=== PATIENT | female | born 1990 | race American Indian/Alaskan Native ===

== ENCOUNTER 2018-09-12 09:49 | Inpatient (IN) | payer OTHER, MEDICAID ==
[2018-09-12] MEDS ORDERED: REGLAN IV SCH (09:54)
[2018-09-12] MEDS ORDERED: PEPCID IV SCH (09:54)
[2018-09-12 11:00] LABS: Basophils % (Auto) 0.7 % (0.0-1.8); Eosinophils # (Auto) 0.1 K/mm3 (0.0-0.4); Eosinophils % (Auto) 1.1 % (0.0-4.3); Hemoglobin 11.8 gm/dl (10.1-14.3); Lymphocytes % (Auto) 27.5 % (13.4-35.0); Mean Corpuscular HGB Conc 35 % (30-34); Mean Corpuscular Volume 93 fl (79-97); Monocytes # (Auto) 0.6 K/mm3 (0.0-0.8); Monocytes % (Auto) 8.4 % (0.0-7.3); Platelet Count 387 K/mm3 (140-440); Red Blood Count 3.65 M/mm3 (3.65-5.03); Red Cell Distribution Width 13.8 % (13.2-15.2)
[2018-09-12] MEDS ORDERED: BICITRA PO ONE (11:00)
[2018-09-12] MEDS: LACTATED RINGERS 1,000 ML IV SCH ×2 (11:04→11:18)
--- NOTE | 2018-09-12 11:29 | Anesthesia Consultation ---
Anesthesia Consult and Med Hx Date of service: 09/12/18 - Airway Anesthetic Teeth Evaluation: Poor, Chipped, Crowns ROM Head & Neck: Adequate Mental/Hyoid Distance: Adequate Mallampati Class: Class II Intubation Access Assessment: Probably Good - Pulmonary Exam CTA: Yes - Cardiac Exam Cardiac Exam: RRR - Pre-Operative Health Status ASA Pre-Surgery Classification: ASA2 Proposed Anesthetic Plan: Epidural - Pulmonary Hx Smoking: No Hx Asthma: No Hx Respiratory Symptoms: No SOB: No COPD: No Home Oxygen Therapy: No Hx Pneumonia: No Hx Sleep Apnea: No - Cardiovascular System Hx Hypertension: No Hx Coronary Artery Disease: No Hx Heart Attack/AMI: No Hx Angina: No Hx Percutaneous Transluminal Coronary Angioplasty (PTCA): No Hx Cardia Arrhythmia: No Hx Pacemaker: No Hx Internal Defibrillator: No Hx Valvular Heart Disease: No Hx Heart Murmur: No Hx Peripheral Vascular Disease: No - Central Nervous System Hx Neuromuscular Disorder: No Hx Seizures: No CVA: No Hx Back Pain: Yes Hx Psychiatric Problems: No - Gastrointestinal Hx Ulcer: No Hx Gastroesophageal Reflux Disease: Yes - Endocrine Hx Renal Disease: No Hx End Stage Renal Disease: No Hx Cirrhosis: No Hx Liver Disease: No Hx Insulin Dependent Diabetes: No Hx Non-Insulin Dependent Diabetes: No Hx Thyroid Disease: No Hx Hypothyroidism: No Hx Hyperthyroidism: No - Hematic Hx Anemia: Yes (taking iron) Hx Sickle Cell Disease: No - Other Systems Hx Alcohol Use: No Hx Substance Use: No Hx Cancer: No Hx Obesity: Yes (bmi 48)
[2018-09-12] MEDS ORDERED: NARCAN 0.4 MG/1 ML IV PRN ×2 (11:30→15:01)
[2018-09-12] MEDS ORDERED: PHENERGAN PO PRN (11:30)
[2018-09-12] MEDS ORDERED: DILAUDID IV PRN ×2 (11:30)
[2018-09-12] MEDS ORDERED: ZOFRAN IV PRN (11:30)
[2018-09-12] MEDS ORDERED: PHENERGAN PR PRN (11:30)
--- NOTE | 2018-09-12 11:30 | Anesthesia Day of Surgery ---
Anesthesia Day of Surgery - Day of Surgery Patient Examined: Yes Patient H&P Reviewed: Yes Patient is NPO: Yes Beta Blockers: No Cardiac Clearance: No Pulmonary Clearance: No López's Test: N/A
[2018-09-12] MEDS ORDERED: SUBLIMAZE ONE (11:37)
[2018-09-12] MEDS ORDERED: ANCEF/STERILE WATER 2 GM/20 ML 2 GM/20 ML SYRINGE IV ONE (11:38)
[2018-09-12] MEDS ORDERED: PITOCin/NS 20 UNIT/1000ML DRIP 20,000 MILLIUNITS/1,000 ML BAG IV ONE ×3 (11:38→16:26)
[2018-09-12] MEDS ORDERED: SODIUM CHLORIDE FLUSH SYRINGE 10 ML IV NR (12:00)
--- NOTE | 2018-09-12 12:02 | History and Physical Report ---
History of Present Illness Date of examination: 09/12/18 Date of admission: 09/12/18 09:49 Chief complaint: at 39+3 days and here for an elective repeat section with bilateralsalpingectomies. History of present illness: at 39+3 wks. X3 previous deliveries. Patient absolutely sure she had completed childbearing and wanted permanent contraception. Past History Past Surgical History: FLAGMAN/uterine surgery Social history: no significant social history - Obstetrical History Expected Date of Delivery: 09/16/18 Actual Gestation: 39 Week(s) 3 Day(s) : 6 Para: 5 Medications and Allergies Allergies Allergy/AdvReac Type Severity Reaction Status Date / Time No Known Allergies Allergy Verified 09/12/18 09:53 Home Medications Medication Instructions Recorded Confirmed Last Taken Type Vit No.126/Iron/Folic 1 tab PO QDAY 12/19/13 09/12/18 09/11/18 23:00 History [Classic Tablet] Active Meds: Active Medications Famotidine (Pepcid) 20 mg IV ONCE BETTY Stop: 09/12/18 23:00 Last Admin: 09/12/18 11:42 Dose: 20 mg Documented by: Hydromorphone HCl (Dilaudid) 0.5 mg IV Q5M PRN PRN Reason: Breakthrough Pain Hydromorphone HCl (Dilaudid) 0.5 mg IV Q4H PRN PRN Reason: breakthrough pain > 7/10 Lactated Ringer's (Lactated Ringers) 1,000 mls @ 2,250 mls/hr IV PREOP BETTY Stop: 09/13/18 10:27 Last Admin: 09/12/18 11:18 Dose: 2,250 mls/hr Documented by: Metoclopramide HCl (Reglan) 10 mg IV ONCE BETTY Stop: 09/12/18 23:00 Last Admin: 09/12/18 11:42 Dose: 10 mg Documented by: Naloxone HCl (Narcan 0.4 Mg/1 Ml) 0.2 mg IV Q2MIN PRN PRN Reason: Res Rate </= 8 or 02 SAT < 92% Ondansetron HCl (Zofran) 4 mg IV Q8H PRN PRN Reason: Nausea And Vomiting Promethazine HCl (Phenergan) 25 mg PO Q6H PRN PRN Reason: Nausea And Vomiting Promethazine HCl (Phenergan) 25 mg MS Q6H PRN PRN Reason: Nausea And Vomiting Sodium Chloride (Sodium Chloride Flush Syringe 10 Ml) 10 ml IV PRN NR Stop: 09/12/18 23:59 Review of Systems All systems: negative - Vital Signs Vital signs: Vital Signs Pulse BP Pulse Ox 61 124/64 96 09/12/18 10:20 09/12/18 10:20 09/12/18 10:20 Temp Pulse Resp BP Pulse Ox 97 F L 62 20 124/64 97 09/12/18 10:21 09/12/18 10:35 09/12/18 10:21 09/12/18 10:21 09/12/18 10:35 - Physical Exam Breasts: Positive: deferred Cardiovascular: Regular rate Lungs: Positive: Clear to auscultation Abdomen: Positive: distention - Obstetrical FHR: category 1 Uterine Contraction Pattern: Absent Results Result Diagrams: 09/12/18 10:30 Abnormal lab results 09/12/18 Range/Units 10:30 MCHC 35 H (30-34) % [place] % (Auto) 8.4 H (0.0-7.3) % All other labs normal. Assessment and Plan Term . Previous deliveries. Voluntary request for bilateral salpingectomies for contraception. PLAN: Repeat delivery imminent. Plus tubal sterilization.
[2018-09-12] MEDS ORDERED: NACL 0.9% IR ONE (13:09)
[2018-09-12] MEDS ORDERED: WATER FOR IRRIG STERILE IR ONE (13:09)
[2018-09-12] MEDS ORDERED: XYLOCAINE MPF 2% ONE (13:37)
[2018-09-12] MEDS ORDERED: VERSED ONE ×2 (13:42)
[2018-09-12] MEDS ORDERED: TORADOL ONE (14:52)
[2018-09-12] MEDS ORDERED: SENOKOT PO PRN (15:01)
[2018-09-12] MEDS ORDERED: LANSINOH TP PRN (15:01)
[2018-09-12] MEDS ORDERED: TYLENOL PO PRN (15:01)
[2018-09-12] MEDS ORDERED: TUCKS PAD TP PRN (15:01)
[2018-09-12] MEDS ORDERED: ANUCORT-HC PR PRN (15:01)
[2018-09-12] MEDS ORDERED: MORPHINE IV PRN (15:01)
--- NOTE | 2018-09-12 15:51 | Operative Report ---
Operative Report Operative Report: Date of surgery 09/12/2018 Admitting diagnoses: Full-term at 39 weeks and 3 days, following delivery and request for tubal sterilization. Procedure: 1 elective repeat section 2. Bilateral salpingectomies 3. Lysis of adhesions. Surgeon:C.C.MD Rl Jet Handler surgeon: Radha Wang M.D. AnesthetistSynsmalthea, JAZMYN [place] Anesthesia: Combined spinal and epidural blockades Estimated blood loss 500 mL Complications: None Findings: There was a live baby boy weighing 8 pounds and 1 ounce, Apgars 9 and 9. Baby was in cephalic presentation. Both ovaries were grossly normal but significantly bound with adjacent fallopian tubes by dense peritoneal adhesions. Elsewhere within the lower abdomen were dense bands of adhesions binding the sigmoid colon to the back of the uterus. There were further bands of adhesions involving the greater omentum to the anterior parietal peritoneum inferior to the umbilicus. The uterus was bound by dense peritoneal adhesions obliterating the anterior cul-de-sac but otherwise unremarkable gravid structure. Procedure in detail: The patient was taken to the operating room. She was given a combination of spinal and epidural blockades. She was placed in the straight supine position with slight left lateral tilt. Patient was prepped in the abdomen. The drapes were placed. She had an indwelling fullness catheter. A timeout was done. The operation began with an incision placed over the previously existing Pfannenstiel scar. The incision was carried deeper across the subcutaneous layer to the underlying fascia. Time was taken to identify the fascia and the underlying rectus abdominis muscle flaps were identified and dissected free of the fascia. After the rectus abdominis muscle flaps in the midline, the anterior parietal peritoneum was identified and cut. Some peritoneal adhesions were contacted in the vicinity and were divided as carefully as possible. With a great deal of difficulty the bladder blade was applied. The uterine incision was placed transversely in the lower segment. The uterine incision was widened. The amniotic sac was ruptured with clear fluid. The head of the was difficult to bring out through the incision which had to be widened further. 2 attempts using the vacuum suction cup to extract the head of the baby through the incision failed. The head was delivered through the incision by fundal pressure. The airways were bulb suctioned beginning with the mouth. Gentle traction on the mandibular processes as well as continuation of the fundal pressure delivered the rest of the baby. The umbilical cord was double clamped and divided and the baby was handed safely to the pediatric team. A blood sample was taken from the umbilical cord for routine analysis. The placenta was then manually removed from the uterine cavity. Uterine cavity was thereafter explored and was empty of any placental remnants. The uterine incision was repaired in one layer using #1 Vicryl. A considerable amount of time was taken to free the extensive peritoneal adhesions encountered within the operative field and the pelvis. These were dealt using a combination of blunt and sharp dissections as well as thermal coagulation using the LigaSure where appropriate. When the fallopian tubes had been clearly identified and delineated, each was removed by excision from the fimbrial end to the uterine cornua. Both fallopian tubes were sent for histopathological examination. Hemostasis along all the surgical gloria were carefully observed and was determined to be satisfactory. Blood and clots were removed from the peritoneal cavity. The bladder was explored in the first instance by using the bulb of the quinones's catheter to identify the bladder; there was no breach detected. Sterile milk was also injected through the Quinones's catheter back into the bladder and there was no extravasation of this material into the pelvis. After again observing for hemostasis within the pelvis and determining that this was satisfactory the anterior parietal peritoneal was coapted using #1 Vicryl. The fascia was repaired with #1 Vicryl. The skin was closed subcuticularly with 4-0 Vicryl on a Arpit needle. This was a difficult section and bilateral salpingectomies with extens mik lysis of adhesions. There were no complications. The estimated blood loss 500 mL. The patient was transferred to the recovery room in very good condition.
[2018-09-12] MEDS ORDERED: SODIUM CHLORIDE FLUSH SYRINGE 10 ML IV SCH (16:00)
--- NOTE | 2018-09-12 16:11 | Post Anesthesia Evaluation ---
- Post Anesthesia Evaluation Patient Participated: Yes Airway Patent: Yes Stable Respiratory Function: Yes Nausea/Vomiting: No Temp > 96.8F: Yes Pain Manageable: Yes Adequeate Hydration: Yes Anesthesia Complications: No Block Receding Appropriately: Yes Patient on Ventilator: No
[2018-09-12] MEDS: TORADOL IV PRN ×2 (17:19→23:44)
[2018-09-12] MEDS: ANCEF/NS 1 GM/50 ML 1 GM/50 ML BAG IV SCH (20:37)
[2018-09-13] MEDS ORDERED: D5LR 1,000 ML IV SCH (03:00)
[2018-09-13] MEDS: ANCEF/NS 1 GM/50 ML 1 GM/50 ML BAG IV SCH (05:53)
[2018-09-13] MEDS: TORADOL IV PRN ×2 (05:54→14:42)
[2018-09-13] MEDS ORDERED: BOOSTRIX IM ONE (06:00)
[2018-09-13 06:11] LABS: Hematocrit 29.7 % (30.3-42.9); Hemoglobin 10.2 gm/dl (10.1-14.3)
[2018-09-13] MEDS: FEOSOL PO SCH (09:52)
[2018-09-13] MEDS: PRENATAL VITAMIN PO SCH (09:52)
--- NOTE | 2018-09-13 09:57 | Progress Note ---
Assessment and Plan - Patient Problems (1) Status post delivery Current Visit: Yes Status: Acute Plan to address problem: Continue routine PP orders Keep dressing dry and intact Anticipate d/c home in 48 hrs (2) Anemia Current Visit: Yes Status: Acute Qualifiers: Anemia type: other cause Other causes of anemia: acute posthemorrhagic Qualified Code(s): D62 - Acute posthemorrhagic anemia Plan to address problem: Asymptomatic Continue daily po iron supplementation (3) Sterilization Current Visit: Yes Status: Acute Subjective - Subjective Date of service: 09/13/18 Principal diagnosis: S/P section Interval history: See admission H & P and operative report Patient reports: appetite normal, voiding normally, pain well controlled (with medications), flatus, ambulating normally, no bowel movement [place]: doing well, bottle feeding (and ) Objective - Vital Signs Latest vital signs: Vital Signs Temp Pulse Resp BP BP Pulse Ox 09/13/18 07:31 98.3 F 77 16 125/53 96 09/13/18 04:00 98.8 F 80 16 121/79 09/13/18 00:26 99.1 F 74 18 140/76 95 09/12/18 20:30 98.7 F 74 16 114/74 09/12/18 16:48 97.4 F L 57 L 16 129/73 99 09/12/18 16:03 97.9 F 62 16 114/63 100 09/12/18 15:45 54 L 18 102/54 100 09/12/18 15:30 62 16 104/53 100 09/12/18 15:15 60 14 119/61 100 09/12/18 15:10 62 14 109/64 100 09/12/18 15:05 64 17 108/52 100 09/12/18 15:03 97.9 F 69 15 97/61 100 09/12/18 10:35 62 97 09/12/18 10:30 61 98 09/12/18 10:25 63 98 09/12/18 10:21 97 F L 54 L 20 124/64 95 09/12/18 10:20 55 L 124/64 96 Intake and Output 09/12/18 09/13/18 09/13/18 23:59 07:59 15:59 Intake Total 350 200 Output Total 300 2300 500 Balance 50 -2100 -500 Intake: IV 50 ANCEF/NS 1 GM/50 ML 1 gm 50 In 50 ml @ 100 mls/hr IV Q8H [facility] Rx#:[id number] Oral 200 Intake, Free Water 300 Output: Urine 300 2300 500 Indwelling Catheter 1500 Void 800 500 Other: Total, Intake Amount 200 Total, Output Amount 800 500 # Voids Void 1 1 - Exam Breasts: Present: deferred Cardiovascular: Present: Regular rate Lungs: Present: Normal air movement Abdomen: Present: tenderness, normal bowel sounds Uterus: Present: firm, fundal height at umbilicus Extremities: Present: normal, edema (bilat ankles/feet) Deep Tendon Reflex Grade: Normal +2 Incision: Present: dressed (no shawdow drainage/bleeding noted) - Labs Labs: Abnormal lab results 09/12/18 09/13/18 Range/Units 10:30 05:28 Hct 29.7 L (30.3-42.9) % MCHC 35 H (30-34) % [place] % (Auto) 8.4 H (0.0-7.3) %
[2018-09-13] MEDS: IBUPROFEN PO PRN (13:41)
[2018-09-13] MEDS: MILK OF MAGNESIA PO PRN (20:46)
[2018-09-14] MEDS: IBUPROFEN PO PRN ×3 (05:27→18:46)
[2018-09-14] MEDS: PRENATAL VITAMIN PO SCH (09:30)
[2018-09-14] MEDS: FEOSOL PO SCH (09:30)
--- NOTE | 2018-09-14 10:23 | Progress Note ---
Assessment and Plan A: /postop day 2 S/P repeat low transverse section with bilateral salpingectomies and lysis of adhesions. Anemia secondary to and blood loss. P: Continue iron supplementation. Encouraged ambulation. Anticipate discharge tomorrow if patient continues to do well. Subjective - Subjective Date of service: 09/14/18 Principal diagnosis: /postop day 2 S/P repeat low transverse section Interval history: /postop day 2 S/P repeat low transverse section with bilateral salpingectomies and lysis of adhesions. Patient is doing well. She reports small amount of lochia and denies clots. She is ambulating well, voiding without difficulty, and tolerating a regular diet. Patient denies headache, dizziness, cough, chest pain, shortness of breath, nausea or vomiting, leg pain, or heavy vaginal bleeding. Patient reports: appetite normal, voiding normally, pain well controlled, flatus, ambulating normally, no dizzy ambulation, no nauseated [place]: doing well Objective - Vital Signs Latest vital signs: Vital Signs Temp Pulse Resp BP Pulse Ox 09/14/18 07:53 98.4 F 67 24 123/55 95 09/14/18 06:27 18 09/14/18 05:27 18 09/13/18 23:40 98.2 F 85 20 143/72 94 09/13/18 15:54 98.6 F 74 20 132/58 95 09/13/18 11:57 98.3 F 73 24 124/72 96 Intake and Output 09/13/18 09/14/18 09/14/18 23:59 07:59 15:59 Intake Total 120 240 Output Total 450 Balance -330 240 Intake: Oral 120 240 Output: Urine 450 Indwelling Catheter 450 Other: Total, Intake Amount 120 240 Total, Output Amount 450 # Voids Indwelling Catheter 1 Void 1 1 - Exam Cardiovascular: Present: Regular rate, Normal S1, Normal S2, No murmurs Lungs: Present: Clear to auscultation Abdomen: Present: normal appearance, soft, normal bowel sounds. Absent: distention, tenderness, guarding, rigidity Uterus: Present: normal, firm, fundal height below umbilicus. Absent: bogginess, tenderness Extremities: Present: normal, edema (mild pedal edema bilaterally). Absent: tenderness Incision: Present: normal, dry, intact, dressed
[2018-09-14] MEDS: MILK OF MAGNESIA PO PRN (22:10)
[2018-09-15] MEDS: IBUPROFEN PO PRN ×3 (00:10→12:44)
[2018-09-15] MEDS: PRENATAL VITAMIN PO SCH (09:36)
[2018-09-15] MEDS: FEOSOL PO SCH (09:36)
--- NOTE | 2018-09-15 11:36 | Progress Note ---
Assessment and Plan A: /postop day 3 S/P repeat section with bilateral salpingectomies and lysis of adhesions. Anemia secondary to and blood loss. P: Discharge patient home this afternoon. /postop discharge instructions discussed in detail with patient. Advised patient to continue taking her vitamin and iron supplements at home (patient states she has plenty of these at home). Care of incision and activity restrictions discussed with patient. Advised patient to avoid intercourse, driving, stair climbing, lifting and housework. Advised patient to follow up at [facility] in 1 week for incision check. Informed patient to call the office tomorrow to schedule this appointment. Patient voiced understanding of all instructions. Subjective - Subjective Date of service: 09/15/18 Principal diagnosis: /postop day 3 S/P repeat low transverse section Interval history: /postop day 3 S/P repeat low transverse section with bilateral salpingectomies and lysis of adhesions. Patient is doing well. She reports small amount of lochia and denies clots. She is ambulating well, voiding without difficulty, passing gas, and tolerating a regular diet. Patient denies headache, dizziness, cough, chest pain, shortness of breath, nausea or vomiting, leg pain, heavy vaginal bleeding, or symptoms of depression. Patient desires and requests to be discharged home today. Patient reports: appetite normal, voiding normally, pain well controlled, flatus, ambulating normally, no dizzy ambulation, no nauseated : doing well Objective - Vital Signs Latest vital signs: Vital Signs Temp Pulse Resp BP Pulse Ox 09/15/18 07:49 97.2 F L 61 18 96/51 98 09/15/18 01:25 98.1 F 69 20 133/58 97 09/14/18 16:29 98.3 F 79 24 145/71 96 09/14/18 12:13 14 Intake and Output 09/14/18 09/15/18 09/15/18 23:59 07:59 15:59 Intake Total 240 240 Balance 240 240 Intake: Oral 240 240 Other: Total, Intake Amount 240 240 # Voids Void 1 1 - Exam Cardiovascular: Present: Regular rate, Normal S1, Normal S2, No murmurs Lungs: Present: Clear to auscultation Abdomen: Present: normal appearance, soft, normal bowel sounds. Absent: distention, tenderness, guarding, rigidity Uterus: Present: normal, firm, fundal height below umbilicus. Absent: bogginess, tenderness Extremities: Present: normal, edema (pedal edema bilaterally; no generalized edema). Absent: tenderness Incision: Present: normal, dry, intact
--- NOTE | 2018-09-15 11:40 | Discharge Summary ---
Providers - Providers Date of Admission: 09/12/18 09:49 Date of discharge: 09/15/18 Attending physician: MING THOMAS MD None Primary care physician: MING THOMAS MD Hospitalization Reason for admission: section Delivery: Procedure: repeat low transverse, other (bilateral salpingectomies and lysis of adhesions) Incision: normal, dry, intact complications: none Discharge diagnosis: IUP at term delivered baby: male Pertinent studies: Labs Hospital course: Stable hospital course Condition at discharge: Good Disposition: DC-01 TO HOME OR SELFCARE - Discharge Diagnoses (1) Term delivered Status: Acute (2) Anemia due to blood loss Status: Acute Plan - Provider Discharge Summary Activity: routine, no sex for 6 weeks, no heavy lifting 4 weeks, no strenuous exercise Diet: routine Instructions: routine Additional instructions: Continue taking your vitamins and iron supplements at home. Call your doctor immediately for: * Fever > 100.5 * Heavy vaginal bleeding ( >1 pad per hour) * Severe persistent headache * Shortness of breath * Reddened, hot, painful area to leg or breast * Drainage or odor from incision. * Keep incision clean and dry at all times and follow doctor's instructions regarding bathing/showering - Follow up plan Follow up: MING THOMAS MD [Primary Care Provider] - 7 Days
[2018-09-15] MEDS: MILK OF MAGNESIA PO PRN (12:44)
[2018-09-15 14:10] VITALS: BP 135/71
== END 2018-09-15 14:40 | disposition home or self-care (01) | DRG 784 ==
LOC: APU 09:49 → OB 16:54
PROVIDERS: ADMIT Obstetrics & Gynecology; ATTEND Obstetrics & Gynecology
PROC: 10D00Z1 Extraction of Products of Conception, Low, Open Approach (ICD-10-PCS; principal; 2018-09-12)
PROC: 0UB70ZZ Excision of Bilateral Fallopian Tubes, Open Approach (ICD-10-PCS; 2018-09-12)
PROC: 0DNW0ZZ Release Peritoneum, Open Approach (ICD-10-PCS; 2018-09-12)
PROC: 3E0234Z Introduction of Serum, Toxoid and Vaccine into Muscle, Percutaneous Approach (ICD-10-PCS; 2018-09-13)
DX: O34.211 Maternal care for low transverse scar from previous cesarean delivery (principal); D62 Acute posthemorrhagic anemia; O99.62 Diseases of the digestive system complicating childbirth; O99.214 Obesity complicating childbirth; O99.02 Anemia complicating childbirth; E66.9 Obesity, unspecified; K66.0 Peritoneal adhesions (postprocedural) (postinfection); Z3A.39 39 weeks gestation of pregnancy; Z37.0 Single live birth; K21.9 Gastro-esophageal reflux disease without esophagitis; Z23 Encounter for immunization
CPT/HCPCS: 36415; 85014; 85018; 85025; 86850; 86900; 86901; 88302; 90471; G0378; J0690; J1885; J2250; J2590; J2765; J3010; J7120; J7121